=== PATIENT | female | born 2000 | race Caucasian/White ===

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

== ENCOUNTER 2020-01-26 18:52 | Emergency (ER) | payer OTHER ==
[~2020-01-26] VITALS: Ht 160 cm; Wt 65.9 kg
[~2020-01-26 18:52] MED LIST changes: +MONO-LINYAH1 EACH PO
== END 2020-01-26 19:33 | disposition home or self-care (01) ==
LOC: ED 18:52
DX: J45.901 Unspecified asthma with (acute) exacerbation (principal); F17.200 Nicotine dependence, unspecified, uncomplicated; Z79.899 Other long term (current) drug therapy
CPT/HCPCS: 99284

== ENCOUNTER 2023-11-01 08:25 | Inpatient (IN) | payer OTHER ==
[~2023-11-01 08:25] MED LIST changes: +DOXYCYCLINE HY100 MG PO; +HYDROCODON-ACE1 EA10 PO; +METRONIDAZOLE500 MG PO; +PRENATAL VITAM1 EAC5 PO; +SULFAMETHOXAZO1 EAC1 PO
[2023-11-01] MEDS ORDERED: LIDOCAINE 2% VISCOUS 6 ML SYR TOP ONE ×3 (09:15→18:45)
[2023-11-01] MEDS ORDERED: LACTATED RINGER'S 1,000 ML IV PRN ×2 (09:15→11:00)
[2023-11-01] MEDS ORDERED: SOD+POT BICARB/CITRIC ACID 2 EA TABLET.EFF PO ONE ×2 (09:15)
[2023-11-01 09:22] LABS: HEMATOCRIT 31.1 % (35.0-50.0); HEMOGLOBIN 10.4 g/dL (12.0-18.0); MCH 27.3 (27-36); MCHC 33.4 g/dl (30-36); MCV 81.9 fl (81-99); RBC 3.79 M/ul (4.3-5.7); RDW 15.2 (10.5-15.0)
[2023-11-01] MEDS ORDERED: METHADONE HCL 10 MG TAB PO SCH ×4 (09:30→21:00)
[2023-11-01 09:38] LABS: AMPHETAMINES, URINE NEGATIVE (NEGATIVE); BARBITURATES, URINE NEGATIVE (NEGATIVE); BENZODIAZEPINE, URINE NEGATIVE (NEGATIVE); BUPRENORPHINE, URINE NEGATIVE (NEGATIVE); CANNABINOID, URINE NEGATIVE (NEGATIVE); COCAINE, URINE NEGATIVE (NEGATIVE); ECSTASY, URINE POSITIVE (NEGATIVE); FENTANYL, URINE POSITIVE (NEGATIVE); METHADONE, URINE POSITIVE (NEGATIVE); OPIATES, URINE NEGATIVE (NEGATIVE); OXYCODONE, URINE NEGATIVE (NEGATIVE); PHENCYCLIDINE, URINE NEGATIVE (NEGATIVE)
[2023-11-01 09:56] LABS: ABO A; RH POSITIVE
[2023-11-01 09:57] LABS: ANTIBODY SCREEN NEGATIVE
[2023-11-01] MEDS ORDERED: TRANEXAMIC ACID IN NACL,ISO-OS 100 ML IV ONE (11:05)
[2023-11-01] MEDS ORDERED: MORPHINE SULFATE 1 MG/ML VIAL ONE (11:44)
[2023-11-01] MEDS ORDERED: BUPIVACAINE 0.75% IN DEXTROSE 2 ML AMP ONE ×2 (11:44→17:00)
[2023-11-01] MEDS ORDERED: fentaNYL citrate 100 MCG/2 ML VIAL ONE (11:44)
[2023-11-01] MEDS ORDERED: LIDOCAINE HCL 2% 5 ML SDV ONE ×2 (11:45→17:00)
[2023-11-01] MEDS ORDERED: ondansetron HCL 4 MG/2 ML VIAL ONE ×2 (11:45→17:02)
[2023-11-01] MEDS ORDERED: CEFAZOLIN SODIUM 2 GM/20 ML SYR IV ONE ×2 (11:45)
[2023-11-01] MEDS ORDERED: NICOTINE 14 MG/24 HR 1 EA TDSY TD SCH (15:20)
[2023-11-01] MEDS ORDERED: OXYTOCIN 10 UNITS/ML VIAL ONE ×2 (17:02→18:13)
[2023-11-01] MEDS ORDERED: DEXAMETHASONE SOD PHOS 4 MG/ML VIAL ONE (17:10)
[2023-11-01] MEDS ORDERED: Ropivacaine HCl 0.5% 30 ML VIAL ONE (17:10)
[2023-11-01] MEDS ORDERED: SODIUM CHLORIDE 0.9% 20 ML IV ONE (17:10)
[2023-11-01] MEDS ORDERED: GLYCOPYRROLATE 1 MG/5 ML MDV ONE (17:38)
[2023-11-01] MEDS ORDERED: NALOXONE HCL 0.4 MG/ML VIAL ONE (18:00)
[2023-11-01] MEDS ORDERED: dexmedeTOMIDine HCl 200 MCG/2 ML VIAL ONE (18:10)
[2023-11-01] MEDS ORDERED: LACTATED RINGER'S 1,000 ML IV ONE (18:12)
[2023-11-01] MEDS ORDERED: ondansetron HCL 4 MG/2 ML VIAL IV PRN ×2 (18:15→18:45)
[2023-11-01] MEDS ORDERED: HYDROmorphone HCL 1 MG/ML SYR IV PRN (18:15)
[2023-11-01] MEDS ORDERED: KETOROLAC TROMETHAMINE 30 MG/ML VIAL IV PRN (18:15)
[2023-11-01] MEDS ORDERED: diphenhydrAMINE HCL 50 MG/ML VIAL IV PRN (18:15)
[2023-11-01] MEDS ORDERED: NALOXONE HCL 0.4 MG SYR IV PRN (18:15)
[2023-11-01] MEDS ORDERED: PROCHLORPERAZINE EDISYLATE 10 MG/2 ML VIAL IV PRN ×2 (18:15→18:45)
[2023-11-01] MEDS ORDERED: LACTATED RINGER'S 1,000 ML IV SCH (18:41)
[2023-11-01] MEDS ORDERED: PROMETHAZINE HCL 25 MG SUPP PR PRN (18:45)
[2023-11-01] MEDS ORDERED: OXYCODONE HCL 5 MG TAB PO PRN (18:45)
[2023-11-01] MEDS ORDERED: bisacodyL 10 MG SUPP PR PRN (18:45)
[2023-11-01] MEDS ORDERED: PROMETHAZINE HCL 25 MG TAB PO PRN (18:45)
[2023-11-01] MEDS ORDERED: METOCLOPRAMIDE HCL 10 MG/2 ML SDV IV PRN (18:45)
[2023-11-01] MEDS ORDERED: OXYTOCIN/0.9 % SODIUM CHLORIDE 500 ML IV SCH (18:45)
[2023-11-01 19:19] VITALS: BP 114/60
--- NOTE | 2023-11-01 19:22 | NUR ---
11/01/231920 Sophia Gordon 1840- PT PRESENTS TO ROOM 105 IN [facility]. BREATHING EVEN AND NON LABORED. AWAKE BUT DROWSY, ANSWERS ALL QUESTIONS APPROPRIATELY. LR WITH 20 UNITS OF PITOCIN INFUSING TO LH 18 G IV. PT DENIES NAUSEA AND PAIN. ALL MONITORS IN PLACE. CLEAR URINE DRAINING IN HENDRIX. 1849- BABY BROUGHT TO ROOM, ATTEMPTING TO PUT TO BREAST AT THIS TIME. NO BLEEDING NOTED ON FUNDAL CHECKS. PT CONTINUES TO DENY PAIN OR NAUSEA. 1899- REPORT TO KAI SAAB AT BEDSIDE. LR WITH 20 UNITS OF PITOCIN CONTINUES TO INFUSE. PT HAS NO COMPLAINTS. CARE OF PT TURNED OVER AT THIS TIME.
[2023-11-01] MEDS ORDERED: KETOROLAC TROMETHAMINE 30 MG/ML VIAL IV SCH (20:00)
[2023-11-01] MEDS ORDERED: SENNOSIDES/DOCUSATE 1 EA TAB PO SCH (21:00)
[2023-11-01] MEDS ORDERED: SIMETHICONE 125 MG TABLET CHEWABLE PO SCH (21:00)
[2023-11-02] MEDS ORDERED: ACETAMINOPHEN 500 MG TAB PO SCH
[2023-11-02] MEDS ORDERED: LACTATED RINGER'S 1,000 ML IV SCH ×2 (05:00)
[2023-11-02 05:24] LABS: HEMATOCRIT 30.1 % (35.0-50.0); HEMOGLOBIN 9.9 g/dL (12.0-18.0); MCH 26.9 (27-36); MCHC 32.7 g/dl (30-36); MCV 82.2 fl (81-99); RBC 3.67 M/ul (4.3-5.7); RDW 15.1 (10.5-15.0)
--- NOTE | 2023-11-02 08:56 | PR ---
[facility] [address] [place], [place] [address] Signed PP Progress Notes Datetime Report Generated by NONI: 11/02/2023 08:56 SUBJECTIVE: [id number] Pain: Within Normal Limits Nausea/Vomiting: Denies Flatus: Yes Bowel Movement: No Vital Signs: [id number] Cardiovascular: Not Done Respiratory: Not Done Abdomen/Uterus: Normal Lochia: Normal Vulva/Perineum: Not Done Breasts: Not Done CVA Tenderness: Not Done Extremities: Normal Incision: Normal Progress: Abnormal IMPRESSION/PLAN/PROCEDURES: [id number] Impression: Normal Progression Plan: Continue Present Management Procedures: None Progress Notes: S: 22 yo s/p primary LTCS for breech presentation. Patient appears more sleepy/somnolent than what is expected. Denies HORVATH, CP, SOB, F/C, N/V, RUQ pain, changes in vision, vaginal discharge. Tolerating regular diet, not yet ambulating, pain controlled. O: AFVSS Abd: Soft, appropriately TTP. Fundus firm and 1 fingerbreadth below umbilicus. Incision C/D/I. No erythema or drainage noted. [place] in place. Musc: REED. 1+ edema bilaterally. A/P: 22 yo s/p primary LTCS for breech presentation. POD #1. Doing well. Concern for patient using recreational drugs while in hospital though patient denies. Will continue to monitor. Disposition in house. Likely discharge home tomorrow AM. Signing Physician: Dion Sullivan MD *Electronically Signed* 11/02/23 0856 DION SULLIVAN MD PATIENT NAME: HIRO DEUTSCH KARLOS PROGRESS NOTE DATE OF : 00 PHYSICIAN: DION SULLIVAN MD RPT #: [id number] REPORT IS CONFIDENTIAL AND NOT TO BE RELEASED WITHOUT AUTHORIZATION
[2023-11-02] MEDS ORDERED: IBUPROFEN 800 MG TAB PO SCH ×2 (20:00→22:00)
--- NOTE | 2023-11-03 13:07 | PR ---
[facility] [address] [place], [place] [address] Signed PP Progress Notes Datetime Report Generated by CPN: 11/03/2023 13:06 SUBJECTIVE: [id number] Pain: Within Normal Limits Nausea/Vomiting: Denies Flatus: Yes Bowel Movement: No Vital Signs: [id number] Vital Signs: Reviewed; Within Normal Limits Cardiovascular: Not Done Respiratory: Not Done Abdomen/Uterus: Normal Lochia: Normal Vulva/Perineum: Not Done Breasts: Not Done CVA Tenderness: Not Done Extremities: Normal Incision: Normal Progress: Normal IMPRESSION/PLAN/PROCEDURES: [id number] Impression: Normal Progression Plan: Discharge Procedures: None Progress Notes: S:22 yo s/p primary LTCS for breech presentation. POD #2. Doing well. Denies HORVATH, CP, SOB, F/C, N/V, RUQ pain, changes in vision, vaginal discharge. Tolerating regular diet, ambulating, voiding on own, pain controlled. O: AFVSS Abd: Soft. Non-distended. Appropriately TTP. Incision C/D/I. [place] in place. No erythema or drainage. Musc: REED. No noted changes. A/P: 22 yo s/p primary LTCS for breech presentation. POD #2 Doing well. Meeting all hospital milestones. Will discharge home today. Signing Physician: Yolis Sullivan MD *Electronically Signed* 11/03/23 6176 YOLIS SULLIVAN MD PATIENT NAME: HIRO DEUTSCH PROGRESS NOTE DATE OF : 00 PHYSICIAN: YOLIS SULLIVAN MD RPT #: [id number] REPORT IS CONFIDENTIAL AND NOT TO BE RELEASED WITHOUT AUTHORIZATION
--- NOTE | 2023-11-06 08:52 | OR ---
[facility] [address] [place], [place] [address] Signed DATE OF OPERATION: 11/01/2023 SURGEON: Rowan Goode MD PLANT TAXONOMY TEACHER: MAGUI Zaldivar DO PREOPERATIVE DIAGNOSIS: Term , breech presentation, declined external version. POSTOPERATIVE DIAGNOSIS: Term , breech presentation, declined external version, delivered. PROCEDURE: Primary section with low segment transverse uterine incision. ANESTHESIA: Spinal. ESTIMATED BLOOD LOSS: 500 mL. DRAINS: Nelson catheter. INDICATIONS AND FINDINGS: The patient is a 22-year-old female, 4, para 1, SAB 1, VIP 1, who was admitted at 39+ weeks for primary section for breech. She declined version. She underwent primary section with delivery of a little girl via lower segment transverse uterine incision as a keisha breech, right sacrum anterior with Apgars of 7 and 8 and weight of 7 pounds 7 ounces. Uterus, tubes, ovaries, and placenta were normal. has been remarkable for late care as well as opioid addiction, transition to methadone and currently on 130 mg daily. DESCRIPTION OF PROCEDURE: The patient was prepped and draped in the supine position. A Pfannenstiel skin incision was made and carried down through the fascia. The incision was extended laterally. The inferior and superior fascial flaps were created. The muscles were bluntly divided and the peritoneum opened bluntly and the incision extended bluntly. The Andrew retractor was placed. The uterine incision was made at the upper aspect of the peritoneal Electronically Signed By: ROWAN GOODE MD 11/06/23 0852 PATIENT NAME: HIRO DEUTSCH OPERATIVE REPORT DATE OF : 00 REPORT #: [id number] PHYSICIAN: ROWAN GOODE MD PCP: ROWAN GOODE MD REPORT IS CONFIDENTIAL AND NOT TO BE RELEASED WITHOUT AUTHORIZATION [facility] [address] [place], [place] [address] Signed reflection. The incision was extended bluntly. The baby was delivered with the above findings and handed off to the pediatric staff in attendance. The placenta was expressed and the uterus explored with a lap tape assuring no remaining fragments. The edges of the incision were identified and the uterus closed in 2 layers using 0 Monocryl. The first layer was a running locking stitch and the second was a vertical imbricating stitch. Bleeding points on the peritoneum and the edge of the incision were controlled with cautery. The abdomen was irrigated, inspected and good hemostasis was noted. The retractor was removed and the peritoneum identified. The peritoneum was closed in a running suture of 3-0 Vicryl. The muscles were brought together with interrupted sutures of 0 Vicryl. Bleeding points were controlled with cautery. The fascia was then closed from each angle to the midline with running suture of 0-Vicryl. The subcu space was irrigated and bleeding points controlled. The subcu space was closed with a running suture of 3-0 Vicryl. The skin was closed with nestor. All sponge and needle counts were correct. She tolerated the procedure well and was taken to the recovery room in good condition. Rowan Goode MD PJW/MODL /[id number] Copies: ~ Electronically Signed By: ROWAN GOODE MD 11/06/23 0852 PATIENT NAME: HIRO DEUTSCH OPERATIVE REPORT DATE OF : 00 REPORT #: [id number] PHYSICIAN: ROWAN GOODE MD PCP: ROWAN GOODE MD REPORT IS CONFIDENTIAL AND NOT TO BE RELEASED WITHOUT AUTHORIZATION
== END 2023-11-03 16:00 | disposition home or self-care (01) | DRG 787 ==
LOC: FBC 08:25 → OPS 08:25 → FBC 10:47 → OPS 10:47 → FBC 11-03 16:00
PROVIDERS: ADMIT Obstetrics & Gynecology; ATTEND Obstetrics & Gynecology
PROC: 10D00Z1 Extraction of Products of Conception, Low, Open Approach (ICD-10-PCS; principal; 2023-11-01 07:30)
DX: O32.1XX0 Maternal care for breech presentation, not applicable or unspecified (principal); O99.324 Drug use complicating childbirth; Z37.0 Single live birth; Z3A.39 39 weeks gestation of pregnancy; F11.10 Opioid abuse, uncomplicated
CPT/HCPCS: 01961; 36415; 76942; 80307; 85027; 86850; 86900; 86901; A9270; J0690; J1100; J1885; J2001; J2274; J2310; J2405; J2590; J2795; J3010; J7121

== ENCOUNTER 2024-03-23 23:20 | Emergency (ER) | payer OTHER ==
[~2024-03-23] VITALS: Ht 160 cm; Wt 81.2 kg
[2024-03-23 23:57] VITALS: BP 131/81
== END 2024-03-23 23:58 | disposition home or self-care (01) ==
LOC: ED 23:20
DX: S91.205A Unspecified open wound of left lesser toe(s) with damage to nail, initial encounter (principal); W50.0XXA Accidental hit or strike by another person, initial encounter
CPT/HCPCS: 99283

== ENCOUNTER 2024-07-19 15:30 | Emergency (ER) | payer OTHER ==
[~2024-07-19] VITALS: Ht 160 cm; Wt 77.1 kg
[2024-07-19 17:00] VITALS: BP 129/94
== END 2024-07-19 17:00 | disposition home or self-care (01) ==
LOC: ED 15:30
DX: J06.9 Acute upper respiratory infection, unspecified (principal); J45.909 Unspecified asthma, uncomplicated; F17.200 Nicotine dependence, unspecified, uncomplicated
CPT/HCPCS: 99283

== ENCOUNTER 2024-07-24 18:05 | Emergency (ER) | payer OTHER ==
[~2024-07-24] VITALS: Ht 160 cm; Wt 77.0 kg
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
[2024-07-24] MEDS ORDERED: KETOROLAC TROMETHAMINE 60 MG/2 ML VIAL IM ONE (20:45)
[2024-07-24] MEDS ORDERED: PSEUDOEPHEDRINE HCL 30 MG TAB PO ONE (20:45)
[2024-07-24] MEDS ORDERED: NASAL DECONGEST30 MG PO (21:24)
[2024-07-24] MEDS ORDERED: VENTOLIN HFA18 GM INH (21:24)
[2024-07-24] MEDS ORDERED: CYCLOBENZAPRINE10 MG PO (21:24)
[2024-07-24] MEDS ORDERED: CYCLOBENZAPRINE HCL 10 MG HOME.PACK PO ONE (21:30)
[2024-07-24 21:57] VITALS: BP 145/94
[2024-07-25] MEDS ORDERED: HYDROCODON-ACE1 EA10 PO (12:03)
== END 2024-07-24 22:06 | disposition home or self-care (01) ==
LOC: ED 18:05
DX: J10.1 Influenza due to other identified influenza virus with other respiratory manifestations (principal); J45.909 Unspecified asthma, uncomplicated; F17.200 Nicotine dependence, unspecified, uncomplicated; Z79.899 Other long term (current) drug therapy
CPT/HCPCS: 71045; 96372; 99283-25; A9270; J1885

== ENCOUNTER 2024-07-25 09:46 | Emergency (ER) | payer OTHER ==
[~2024-07-25] VITALS: Ht 160 cm; Wt 80.0 kg
[~2024-07-25 09:46] MED LIST changes: +CYCLOBENZAPRINE10 MG PO; +NASAL DECONGEST30 MG PO; +VENTOLIN HFA18 GM INH
--- OUTSIDE RECORDS SUMMARY | 2024-07-25 09:52 | XMS ---
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 - 2 Visits in 30 Days CARE PROVIDERS -, [facility] Dentist: Hat Blocking Machine Operator Current [place] PHONE: [phone] -Harry- Dentist: Hat Blocking Machine Operator [facility] PHONE: [phone] Lesvia has no Care Guidelines for this patient. Guadalupe VISIT COUNT (12 MO.) [address] [place] [address] TOTAL 4 NOTE: Visits indicate total known visits. ED/UCC VISIT TRACKING (12 MO.) 07/25/2024 09:46 [facility] [place] TYPE: Emergency COMPLAINT: - DIFFICULTY BREATHING 07/24/2024 18:05 [facility] [place] TYPE: Emergency COMPLAINT: - COLD SYMPTOMS 07/19/2024 15:30 [facility] [place] TYPE: Emergency COMPLAINT: - COLD SYMPTOMS [...] MO.) 11/01/2023 10:47 [facility] [place] TYPE: [facility] COMPLAINT: - EXTERNAL CEPHALIC VERSION/INDUCTION FOR LABOR DIAGNOSES: - 39 weeks gestation of - 39 weeks gestation of - Drug use complicating childbirth - Maternal care for breech presentation, not applicable or unspecified - Opioid abuse, uncomplicated - Single live - Single live [email or web address]
[2024-07-25 11:26] LABS: BASOPHILS 0.1 % (0-2); EOSINOPHILS 0.2 % (0-6); HEMOGLOBIN 12.8 g/dL (12.0-18.0); LYMPHOCYTES 35.6 % (24-44); MCH 26.5 (27-36); MCHC 33.6 g/dl (30-36); MCV 79.1 fl (81-99); MONOCYTES 6.3 % (0-12); NEUTROPHILS 57.8 % (39-80); PLATELET COUNT 213 K/uL (140-440); RDW 18.3 (10.5-15.0)
[2024-07-25 11:32] LABS: CORONAVIRUS COVID-19 AG NEGATIVE (NEGATIVE); INFLUENZA A AG POSITIVE (NEGATIVE); INFLUENZA B AG NEGATIVE (NEGATIVE)
[2024-07-25 11:35] LABS: ANION GAP 14.3 (7-21); BUN/CREATININE RATIO 6.89 (6.0-28.6); CALCIUM 8.5 mg/dL (8.5-10.1); CREATININE, SERUM 0.58 mg/dL (0.55-1.02); POTASSIUM 3.3 mmol/L (3.5-5.1)
[2024-07-25] MEDS ORDERED: HYDROCODON-ACE1 EA10 PO (12:03)
[2024-07-25 12:16] VITALS: BP 148/88
== END 2024-07-25 12:17 | disposition home or self-care (01) ==
LOC: ED 09:46
PROVIDERS: Emergency Medicine
DX: J10.1 Influenza due to other identified influenza virus with other respiratory manifestations (principal); J45.909 Unspecified asthma, uncomplicated; F17.200 Nicotine dependence, unspecified, uncomplicated; Z79.899 Other long term (current) drug therapy
CPT/HCPCS: 36415; 80048; 85025; 87502; 99283; U0002